=== PATIENT | female | born 1980 | race Caucasian/White ===

== ENCOUNTER → 2016-09-21 | Outpatient (CLI) | payer MEDICAID ==
[~2016-09-21] MED LIST: Dexamethasone; OXYC-302 PO; SERT50TA5 PO
== END | disposition home or self-care (01) ==
LOC: CFH 14:01
PROVIDERS: ATTEND Neurological Surgery
DX: M51.37 Other intervertebral disc degeneration, lumbosacral region (principal); M43.17 Spondylolisthesis, lumbosacral region; M51.26 Other intervertebral disc displacement, lumbar region; M48.07 Spinal stenosis, lumbosacral region; M25.78 Osteophyte, vertebrae
CPT/HCPCS: 72120; 72148

== ENCOUNTER 2019-06-10 08:15 | Outpatient (CLI) | payer MEDICAID ==
[~2019-06-10 08:15] MED LIST changes: +SERT50TA28 PO; -SERT50TA5 PO
[2019-06-10] MEDS ORDERED: GADOTERATE 7.5 MMOL/15 ML VIAL ONE (09:00)
== END 2019-06-10 23:59 | disposition home or self-care (01) ==
LOC: CFH 08:15
PROVIDERS: ATTEND Neurological Surgery
DX: D32.0 Benign neoplasm of cerebral meninges (principal); Z98.890 Other specified postprocedural states
CPT/HCPCS: 70553; A9575